=== PATIENT | female | born 1955 | race American Indian/Alaskan Native ===

== ENCOUNTER 2017-01-20 06:03 | Inpatient (IN) | payer MEDICAID ==
[~2017-01-20 06:03] MED LIST: ANCEF/STERILE WATER 2 GM/20 ML 2 GM/20 ML SYRINGE IV SCH
[2017-01-20] MEDS ORDERED: XYLOCAINE 1% 20 mL ONE (06:42)
[2017-01-20] MEDS ORDERED: MARCAINE 0.5% 30 ML INFILTRATI ONE (06:43)
--- NOTE | 2017-01-20 06:56 | Anesthesia Consultation ---
Anesthesia Consult and Med Hx Date of service: 01/20/17 - Airway Anesthetic Teeth Evaluation: Edentulous ROM Head & Neck: Adequate Mental/Hyoid Distance: Adequate Mallampati Class: Class II Intubation Access Assessment: Probably Good - Pulmonary Exam CTA: Yes - Cardiac Exam Cardiac Exam: RRR - Pre-Operative Health Status ASA Pre-Surgery Classification: ASA3 Proposed Anesthetic Plan: General - Cardiovascular System Hx Hypertension: Yes (13 YEARS) - Central Nervous System Hx Psychiatric Problems: No - Gastrointestinal Hx Gastroesophageal Reflux Disease: Yes - Endocrine Hx Liver Disease: Yes (H/O hepatitis B) - Hematic Hx Anemia: No Hx Sickle Cell Disease: No - Other Systems Hx Alcohol Use: No Hx Substance Use: No Hx Cancer: No Hx Obesity: Yes (morbid)
--- NOTE | 2017-01-20 06:57 | Anesthesia Day of Surgery ---
Anesthesia Day of Surgery - Day of Surgery Patient Examined: Yes Patient H&P Reviewed: Yes Patient is NPO: Yes
[2017-01-20] MEDS ORDERED: TRANSDERM-SCOP TD ONE (07:00)
[2017-01-20] MEDS ORDERED: LOVENOX SUB-Q NR ×2 (07:00→08:00)
[2017-01-20] MEDS ORDERED: PEPCID IV NR (07:00)
[2017-01-20] MEDS ORDERED: FLAGYL 500 MG/100 ML 500 MG/100 ML BAG IV NR ×2 (07:00→08:00)
[2017-01-20] MEDS: LACTATED RINGERS 1,000 ML IV SCH (07:05)
[2017-01-20] MEDS ORDERED: ZOFRAN IV PRN (07:25)
[2017-01-20] MEDS ORDERED: MYLICON PO PRN (07:25)
[2017-01-20] MEDS ORDERED: REGLAN IV PRN (07:25)
[2017-01-20] MEDS ORDERED: APRESOLINE IV PRN (07:25)
[2017-01-20] MEDS ORDERED: DILAUDID ONE ×3 (07:29→10:28)
[2017-01-20] MEDS ORDERED: DIPRIVAN 10 MG/ML IV ONE (07:29)
[2017-01-20] MEDS ORDERED: WATER FOR IRRIG STERILE IR ONE (07:34)
[2017-01-20] MEDS ORDERED: TRANSDERM-SCOP TD SCH (08:00)
[2017-01-20] MEDS ORDERED: LACTATED RINGERS 1,000 ML IV SCH (08:00)
[2017-01-20] MEDS ORDERED: LEVAQUIN 500MG/100ML 500 MG/100 ML BAG IV NR (08:00)
[2017-01-20] MEDS ORDERED: ZEMURON IV ONE ×2 (08:06→09:07)
[2017-01-20] MEDS ORDERED: XYLOCAINE MPF 2% ONE (08:06)
[2017-01-20] MEDS ORDERED: DECADRON ONE (08:06)
[2017-01-20] MEDS ORDERED: QUELICIN ONE (08:07)
[2017-01-20] MEDS ORDERED: NACL 0.9% IR ONE ×2 (08:13→09:24)
[2017-01-20] MEDS ORDERED: XYLOCAINE 1% 20 mL INFILTRATI ONE (08:14)
[2017-01-20] MEDS ORDERED: MARCAINE 0.5% INFILTRATI ONE (08:14)
[2017-01-20] MEDS ORDERED: ROBINUL ONE ×2 (09:53)
[2017-01-20] MEDS ORDERED: NEOSTIGMINE ONE (09:56)
[2017-01-20] MEDS ORDERED: NORCO PO PRN (10:19)
[2017-01-20] MEDS: DILAUDID IV PRN ×2 (10:28→10:39)
[2017-01-20] MEDS: MORPHINE IV PRN ×2 (15:39→20:46)
[2017-01-21] MEDS: MORPHINE IV PRN ×2 (01:20→09:17)
[2017-01-21] MEDS: LACTATED RINGERS 1,000 ML IV SCH (03:22)
[2017-01-21 06:14] LABS: Basophils % (Auto) 0.3 % (0.0-1.8); Eosinophils % (Auto) 0.1 % (0.0-4.3); Hematocrit 35.9 % (30.3-42.9); Hemoglobin 11.5 gm/dl (10.1-14.3); Mean Corpuscular HGB Conc 32 % (30-34); Mean Corpuscular Hemoglobin 23 pg (28-32); Mean Corpuscular Volume 73 fl (79-97); Platelet Count 181 K/mm3 (140-440); Red Blood Count 4.93 M/mm3 (3.65-5.03); Red Cell Distribution Width 14.5 % (13.2-15.2); White Blood Count 6.4 K/mm3 (4.5-11.0)
[2017-01-21 06:28] LABS: Anion Gap 18 mmol/L; BUN/Creatinine Ratio 21; Blood Urea Nitrogen 17 mg/dL (7-17); Calcium 8.4 mg/dL (8.4-10.2); Carbon Dioxide 23 mmol/L (22-30); Chloride 101.6 mmol/L (98-107); Glucose 161 mg/dL (65-100); Potassium 3.5 mmol/L (3.6-5.0); Sodium 139 mmol/L (137-145)
[2017-01-21] MEDS ORDERED: KCL 10MEQ/100ML 10 MEQ/100 ML BAG IV ONE (10:00)
[2017-01-21] MEDS ORDERED: NORVASC PO SCH (10:00)
[2017-01-21] MEDS ORDERED: LOVENOX SUB-Q SCH (10:00)
[2017-01-21 10:18] LABS: Bacteria,Urine 1+ /HPF (Negative); Bilirubin,Urine NEG (Negative); Blood,Urine SM (Negative); Ketones,Urine NEG (Negative); Leukocyte Esterase,Urine TR (Negative); Mucus,Urine FEW /HPF; Nitrite,Urine NEG (Negative); Protein,Urine <15 mg/dL mg/dL (Negative); Urobilinogen,Urine < 2.0 mg/dL (<2.0)
[2017-01-21] MEDS ORDERED: KCL 10 MEQ in NACL 0.9% 100 ML IV ONE (12:00)
[2017-01-21 13:19] VITALS: BP 131/46
--- NOTE | 2017-01-21 15:22 | Discharge Summary ---
Providers - Providers Date of Admission: 01/20/17 06:03 Attending physician: AMY OLIVA Primary care physician: TONJA SARAVIA MD Hospitalization Condition: Good Procedures: laparscopic revision of GJ anastomosis and enteroenterostomy. Hospital course: 61 y.o. F with hx of lap gastric bypass, HTN presented to ambulatory surgery for laparscopic revision of GJ anastomosis and enteroenterostomy. She tolerated the procedure well. On POD 1 she tolerated liquids and was able to ambulate. She denies any n/v. Her pain was controlled. On POD 1 she was discharged without issues. Disposition: DC-01 TO HOME OR SELFCARE Core Measure Documentation - Palliative Care Palliative Care/ Comfort Measures: Not Applicable - Core Measures Any of the following diagnoses?: none Exam - Physical Exam Narrative exam: abd: soft, tender at incision sites, dressings cdi. no rebound no guarding. obese - Constitutional Vitals: Temp Pulse Resp BP Pulse Ox 97.2 F L 73 18 131/46 96 01/21/17 13:21 01/21/17 13:21 01/21/17 13:21 01/21/17 13:21 01/21/17 12:31 Plan Activity: other (no lifting >15lbs for 6 weeks ) Diet: clear liquids (sugar free clears) Wound: keep clean and dry Additional Instructions: follow up for wound care appointment Follow up with: TONJA SARAVIA MD [Primary Care Provider] - 7 Days
== END 2017-01-21 14:45 | disposition home or self-care (01) | DRG 327 ==
LOC: 3A 06:03 → 3B-SURG 10:31
PROVIDERS: ADMIT Specialist; ATTEND Specialist
PROC: 0D1 Gastrointestinal System, Bypass (ICD-10-PCS; principal; 2017-01-20)
PROC: 0BQT4ZZ Repair Diaphragm, Percutaneous Endoscopic Approach (ICD-10-PCS; 2017-01-20)
PROC: 0D1 Gastrointestinal System, Bypass (ICD-10-PCS; 2017-01-20)
DX: K91.89 Other postprocedural complications and disorders of digestive system (principal); Z68.44 Body mass index [BMI] 60.0-69.9, adult; K91.1 Postgastric surgery syndromes; E66.01 Morbid (severe) obesity due to excess calories; I10 Essential (primary) hypertension; K44.9 Diaphragmatic hernia without obstruction or gangrene; K59.9 Functional intestinal disorder, unspecified; E11.9 Type 2 diabetes mellitus without complications; K21.9 Gastro-esophageal reflux disease without esophagitis; Z88.4 Allergy status to anesthetic agent; Z88.5 Allergy status to narcotic agent; Z88.8 Allergy status to other drugs, medicaments and biological substances
CPT/HCPCS: 36415; 80048; 81001; 85025; A4217; C9250; J0330; J0690; J1100; J1170; J1650; J2270; J2405; J2704; J2710; J2765; J3480; J7120